=== PATIENT | female | born 2000 | race Caucasian/White ===

== ENCOUNTER 2020-03-19 16:15 | Outpatient (REF) | payer BC, SELFPAY | END 2020-03-19 16:16 | disposition home or self-care (01) | LOC: HO.LAB 16:15 | PROVIDERS: Visit Provider Internal Medicine | DX: Z20.828 Contact with and (suspected) exposure to other viral communicable diseases (principal) | CPT/HCPCS: C9803; U0003 ==

== ENCOUNTER 2021-01-10 06:49 | Emergency (ER) | payer OTHER, SELFPAY ==
--- NOTE | ~2021-01-10 | US_ITS ---
EXAMINATION: US ABDOMEN LIMITED CLINICAL INFORMATION: Epigastric pain. COMPARISON: None TECHNIQUE: Real-time imaging of the right upper quadrant abdominal viscera. FINDINGS: PANCREAS: Normal. LIVER: Normal. The liver is normal in size. The liver contour is normal. Parenchymal echogenicity is normal. No focal hepatic lesion. There is no intrahepatic biliary duct dilatation seen. GALLBLADDER: There is echogenic bile but no echogenic stones, wall thickening, polyps or pericholecystic fluid collection. COMMON BILE DUCT: Normal in caliber measuring 0.2 cm in diameter. RIGHT KIDNEY: There are diffuse echogenic pyramids suggestive of medullary sponge kidney. No hydronephrosis. No renal calculi or focal parenchymal lesions. The kidney measures 11.3 cm in maximum dimension. FREE FLUID: None. US/US abdomen limited IMPRESSION: Echogenic bile but no echogenic stones or wall thickening. Diffuse echogenic pyramids right kidney suggestive of medullary sponge kidney. CBD, liver and pancreas appear unremarkable.
[2021-01-10 06:54] VITALS: BP 135/80; PULSE 79; RESP 16; TEMP 36.6; O2SAT 99; BMI 35.6
--- NOTE | 2021-01-10 07:51 | ED_ITS ---
HPI - Nausea/Vomiting/Diarrhea General Chief complaint: Nausea/Vomiting/Diarrhea Stated complaint: vomiting non-stop, migraine Time Seen by Provider: 01/10/21 06:54 Source: patient and family Mode of arrival: ambulatory Limitations: no limitations History of Present Illness MD elicited complaint: nausea, vomiting and abdominal pain Pertinent past history: cyclical vomiting (?unsure has been going on since highschool) Onset (ago): day(s) (Sunday but this has been going on intermittent for years) Description of vomiting: food contents, watery and bilious Associated nausea: Yes Associated abdominal pain: Yes Location of pain: epigastric Radiation: diffuse Pain consistency: intermittent Severity: moderate Quality: cramping Exacerbating factors: eating Relieving factors: hot shower/bath Context: marijuana use Associated symptoms: loss of appetite, malaise and nausea/vomiting Treatment prior to arrival: other (tried zofran without relief) Related Data Previous Rx's Medication Instructions Recorded famotidine 20 mg tablet (Pepcid) 20 mg PO DAILY PRN #30 tab 01/10/21 metoclopramide HCl 10 mg tablet 10 mg PO Q6H PRN #30 tab 01/10/21 (Reglan) promethazine 25 mg rectal 25 mg UT Q6H PRN #12 ea 01/10/21 suppository Allergies Allergy/AdvReac Type Severity Reaction Status Date / Time No Known Allergies Allergy Verified 01/10/21 06:53 Review of Systems Review of Systems: Constitutional : No Weight loss, No Fever, No Chills ENT/Mouth : No sore throat, No Rhinorrhea Eyes: No Swelling, No Redness Cardiovascular : No Chest Pain, No SOB, NoEdema Respiratory : No Cough, No Sputum, No Wheezing Gastrointestinal : Positive Nausea, Positive Vomiting, no Diarrhea, positive abdominal Pain, No Hematochezia, No Melena Genitourinary : No Dysuria, No Urinary Frequency, No Hematuria, No Urgency Musculoskeletal : No joint pain, No Myalgias, No Joint Swelling Skin : No Skin Lesions, No rash Neuro : No Weakness, No Numbness, No Dizziness, No Headache Psych : No Anxiety/Panic, No Depression Heme/Lymph: No Bruising, No Lymphadenopathy Endocrine : No Polyuria, No Polydipsia All other systems reviewed and are negative. Gastrointestinal: Gastrointestinal: Reports nausea PMFSH Past Medical History Attestation statement: The following information was validated with the patient. Medical History (Updated 01/10/21 @ 12:26 by Francie Peres DO) Anxiety Depression Family hx of colon cancer No known health problems Social History Social History (Updated 01/10/21 @ 07:53 by Francie Peres DO) Patient Tobacco Use Status: Never used Tobacco Substance Use Type: Marijuana Advance Directives: No Physical Exam Vital Signs: Vital Signs: Last Vital Signs Temp 97.9 F 01/10/21 06:54 Pulse 79 01/10/21 06:54 Resp 16 01/10/21 06:54 BP 135/80 01/10/21 06:54 Pulse Ox 99 01/10/21 06:54 Body Mass Index 35.6 Appearance: Alert. Oriented X3. No acute distress. Eyes: Pupils equal, round and reactive to light. ENT: Pharynx normal. Neck: Normal inspection. Neck supple. CVS: Normal heart rate and rhythm. Pulses normal. Respiratory: No respiratory distress. Breath sounds normal. Abdomen: Soft and mild epigastric ttp neg Tyson's Skin: Skin warm and dry. Normal skin color. Normal skin turgor. Extremities: No lower extremity edema. No calf ttp Neuro: Oriented X 3. No motor deficit. No sensory deficit. Course Course Course Narrative: no acute findings at this time stable for DC MDM - Nausea/Vomiting/Diarrhea MDM Narrative Medical decision making narrative: 21 yo female with hx of longstanding vomiting episode has had neg endo and colonoscopy as a child reports daily THC use - aware this could be related to it given her propensity for hot showers at this time suspect THC induced cyclical vomiting will need labs, IVF, US to evaluate liver and GB, she does have upcoming GI workup this month with Dr. Newton. Lab Data Result diagrams: 01/10/21 07:56 01/10/21 07:56 Labs: Lab Results 01/10/21 01/10/21 01/10/21 Range/Units 07:47 07:56 07:56 WBC 8.5 (4.8-10.8) X10*3/uL RBC 4.49 (4.20-5.50) X10*6/uL Hgb 13.0 (12.0-16.0) g/dl Hct 38.1 (37-47) % MCV 84.9 (80-98) fL MCH 29.0 (27.0-33.0) pg MCHC 34.1 (31.0-35.0) g/dl RDW 12.5 (11.0-16.0) % Plt Count 211 (160-400) X10*3/uL MPV 11.0 (9.4-12.3) fL Immature Gran % (Auto) 0.5 H (0.0-0.4) % Neut % (Auto) 76.3 H (45-73) % Lymph % (Auto) 14.9 L (20-40) % [place] % (Auto) 7.7 (2-11) % Eos % (Auto) 0.4 (0-4) % Baso % (Auto) 0.2 (0-2) % Lymph # (Auto) 1.3 (1.2-4.9) X10*3/uL [place] # (Auto) 0.7 (0.1-1.2) X10*3/uL Eos # (Auto) 0.0 (0.0-0.4) X10*3/uL Baso # (Auto) 0.0 (0.0-0.2) X10*3/uL Abs Immat Gran (auto) 0.04 H (0.00-0.03) X10*3/uL Absolute Neuts (auto) 6.5 (2.0-8.3) X10*3/uL Absolute Nucleated RBC 0.000 (0.0-0.012) X10*3/uL Nucleated RBC % (auto) 0.0 (0.0-0.2) /100WBC Sodium 138 (135-145) mmol/L Potassium 3.4 (3.3-5.1) mmol/L Chloride 108 (96-108) mmol/L Carbon Dioxide 19 L (22-29) mmol/L Anion Gap 14 (12-20) BUN 10 (9-16) mg/dL Creatinine 0.77 (0.5-1.4) mg/dL Estim Creat Clear Calc 126.6 Estimated GFR > 60 Random Glucose 105 (60-115) mg/dL Calcium 9.1 (8.4-10.2) mg/dL Magnesium 1.9 (1.6-2.6) mg/dL Total Bilirubin 0.7 (0.0-1.0) mg/dL Direct Bilirubin 0.3 (0.0-0.5) mg/dL AST 10 (5-31) U/L ALT 10 (0-31) U/L Alkaline Phosphatase 66 (39-117) U/L Total Protein 6.9 (6.5-8.0) g/dL Albumin 4.3 (3.5-5.0) g/dL Lipase 12 (8-78) U/L COVID-19 (GRICELDA) Negative (Negative) COVID-19 Clin Com See Note Discharge Plan Discharge Clinical Impression: Vomiting Qualifiers: Vomiting type: unspecified Vomiting Intractability: non-intractable Nausea presence: with nausea Qualified Code(s): R11.2 - Nausea with vomiting, unspecified Patient Disposition: Home, Self-Care Instructions: Acute Nausea and Vomiting (ED) Additional Instructions: return to ED for any worsening symptoms or concerns stop smoking THC IMPRESSION: Echogenic bile but no echogenic stones or wall thickening. ? Diffuse echogenic pyramids right kidney suggestive of medullary sponge kidney. CBD, liver and pancreas appear unremarkable. incidental findings - bile is normal in GB, medullary sponge can lead to stones Prescriptions: New promethazine 25 mg suppository 25 mg UT Q6H PRN (Reason: nausea and vomiting) Qty: 12 RF: 0 famotidine [Pepcid] 20 mg tablet 20 mg PO DAILY PRN (Reason: abdominal discomfort) Qty: 30 RF: 0 metoclopramide HCl [Reglan] 10 mg tablet 10 mg PO Q6H PRN (Reason: nausea and vomiting) Qty: 30 RF: 0 Stand Alone Forms: Work/School Release
[2021-01-10] MEDS: Famotidine/PF 20 MG/2 ML VIAL IVPUSH (08:04)
[2021-01-10] MEDS: Metoclopramide HCl 10 MG/2 ML VIAL IVPUSH (08:09)
[2021-01-10] MEDS: diphenhydrAMINE HCL 50 MG/ML VIAL 25 MG IVPUSH (08:09)
[2021-01-10 08:10] LABS: COVID-19 Test Negative (Negative)
[2021-01-10] MEDS: 0.9 % Sodium Chloride 1,000 ML 999 ML IVCONT (08:25)
[2021-01-10 08:54] LABS: MANUAL DIFF FLAG NO
[2021-01-10 09:01] LABS: Basophils Percent Auto 0.2 % (0-2); Eosinophils Percent Auto 0.4 % (0-4); Hematocrit 38.1 % (37-47); Imm Gran Abs Auto 0.04 X10*3/uL (0.00-0.03); Imm Gran Pct Auto 0.5 % (0.0-0.4); Lymphocytes Absolute Auto 1.3 X10*3/uL (1.2-4.9); Lymphocytes Percent Auto 14.9 % (20-40); Mean Corpuscular HGB Conc 34.1 g/dl (31.0-35.0); Mean Corpuscular Volume 84.9 fL (80-98); Monocytes Absolute Auto 0.7 X10*3/uL (0.1-1.2); Monocytes Percent Auto 7.7 % (2-11); Neutrophils Absolute Auto 6.5 X10*3/uL (2.0-8.3); Neutrophils Percent Auto 76.3 % (45-73); Platelet Count 211 X10*3/uL (160-400); Red Blood Count 4.49 X10*6/uL (4.20-5.50); Red Cell Distribution Width 12.5 % (11.0-16.0); White Blood Count 8.5 X10*3/uL (4.8-10.8)
[2021-01-10 09:17] LABS: Alanine Aminotransferase 10 U/L (0-31); Albumin Level 4.3 g/dL (3.5-5.0); Alkaline Phosphatase 66 U/L (39-117); Anion Gap 14 (12-20); Aspartate Amino Transferase 10 U/L (5-31); Bilirubin Direct 0.3 mg/dL (0.0-0.5); Bilirubin Total 0.7 mg/dL (0.0-1.0); Blood Urea Nitrogen 10 mg/dL (9-16); Calcium 9.1 mg/dL (8.4-10.2); Carbon Dioxide 19 mmol/L (22-29); Chloride 108 mmol/L (96-108); Creatinine Clr Calc Pharmacy 126.6; Estimated Glomerular Filt Rate > 60; Glucose Random 105 mg/dL (60-115); Lipase 12 U/L (8-78); Magnesium 1.9 mg/dL (1.6-2.6); Potassium 3.4 mmol/L (3.3-5.1); Sodium 138 mmol/L (135-145); Total Protein 6.9 g/dL (6.5-8.0)
[2021-01-10 12:25] LABS: Appearance Urine HAZY; Color Urine YELLOW; Glucose Urine UA NEG (NEG); Leukocyte Esterase Urine NEG (NEG); Nitrite Urine NEG (NEG); PH 6.5 (5.0-8.0); Specific Gravity - Urine 1.015 (1.005-1.025); Urine Blood NEG (NEG); Urine Ketones 15 MG/DL (NEG); Urine Protein NEG (NEG-TRACE)
[2021-01-10 12:29] LABS: UPreg QC Valid YES; Urine Pregnancy NEGATIVE (NEGATIVE)
== END 2021-01-10 12:45 | disposition home or self-care (01) ==
PROVIDERS: Emergency Provider Emergency Medicine
DX: R11.2 Nausea with vomiting, unspecified (principal); R10.9 Unspecified abdominal pain; Z79.899 Other long term (current) drug therapy; Z20.822 Contact with and (suspected) exposure to COVID-19
CPT/HCPCS: 36415; 76705; 80048; 80076; 81003; 81025; 83690; 83735; 85025; 87635; 96361; 96374; 96375; 99284; J1200; J2765

== ENCOUNTER 2021-01-31 08:41 | Day surgery (SDC) | payer OTHER, SELFPAY ==
[2021-01-25 13:06] VITALS: BMI 36.6
--- NOTE | 2021-01-28 10:23 | HO.ANESPROP2 ---
Documented by User: Chio eRed NP 01/28/21 10:24 HPI - Anesthesia Eval Consult details Narrative: 21yo F for Upper Endoscopy and Colonoscopy PMFSH Past Medical History Medical History Anxiety Depression Family hx of colon cancer No known health problems Surgical History Surgical History History of esophagogastroduodenoscopy (EGD) Hx of colonoscopy Social History Social History (Updated 01/31/21 @ 09:22 by Amanda Mendoza MD) Patient Tobacco Use Status: Never used Tobacco Substance Use Type: Marijuana Last Used Substance: Hours (ago) Are you DNR?: No Advance Directives: No Advance Directives Information Provided: No Advance Directives on File: No Meds Allergies Allergy/AdvReac Type Severity Reaction Status Date / Time No Known Allergies Allergy Verified 01/25/21 13:03 Home Medications Medication Instructions Recorded Confirmed Last Taken Type sertraline 50 mg tablet 1.5 tab PO DAILY 01/25/21 01/25/21 Unknown History Exam Exam Date and Time: January 28, 2021 1023 Height,Weight and Vital Signs: Height 5 ft 4 in Weight 96.615 kg Pertinent Lab Results Pertinent Lab Results: Laboratory Tests 01/10/21 01/10/21 07:56 07:56 WBC 8.5 Hgb 13.0 Hct 38.1 Plt Count 211 Sodium 138 Potassium 3.4 Chloride 108 Carbon Dioxide 19 L BUN 10 Creatinine 0.77 Assessment and Plan Assessment Anesthesia Assessment: Chart Reviewed Documented by User: Amanda Mendoza MD 01/31/21 09:31 PMFSH Active Problems Active Problems: Abdominal pain, diarrhea Past Medical History Medical History Anxiety Depression Family hx of colon cancer No known health problems Family History Family history of problems with anesthesia: No Surgical History Surgical History History of esophagogastroduodenoscopy (EGD) Hx of colonoscopy History of Problems with Anesthesia: No Social History Social History (Updated 01/31/21 @ 09:22 by Amanda Mendoza MD) Patient Tobacco Use Status: Never used Tobacco Substance Use Type: Marijuana Last Used Substance: Hours (ago) Are you DNR?: No Advance Directives: No Advance Directives Information Provided: No Advance Directives on File: No Meds Allergies Allergy/AdvReac Type Severity Reaction Status Date / Time No Known Allergies Allergy Verified 01/25/21 13:03 Home Medications Medication Instructions Recorded Confirmed Last Taken Type sertraline 50 mg tablet 1.5 tab PO DAILY 01/25/21 01/25/21 Unknown History Exam Height,Weight and Vital Signs: Height 5 ft 4 in Weight 96.615 kg Vital Signs Temp Pulse Resp BP Pulse Ox 01/31/21 08:54 98.6 F 81 15 146/80 H 96 Pertinent Lab Results Pertinent Lab Results: Laboratory Tests 01/10/21 01/10/21 07:56 07:56 WBC 8.5 Hgb 13.0 Hct 38.1 Plt Count 211 Sodium 138 Potassium 3.4 Chloride 108 Carbon Dioxide 19 L BUN 10 Creatinine 0.77 Lab Results 01/31/21 Range/Units 08:50 Urine Test NEGATIVE (NEGATIVE) Airway Mallampati Class: I TM Dist: >3cm Neck ROM: Full Loose/Missing/Broken Teeth: No Heart: RRR Lungs: CTAB Assessment and Plan Assessment Anesthesia Assessment: Anesthesia Plan Discussed Final Anesthetic Review Family History of Problems with Anesthesia: No History of Problems with Anesthesia: No NPO: Yes ASA Class: II Final Preanesthetic Review: No Changes in Pt Med Stat, Meds/Allgs Chart Reviewed, Consent Obtained/Reviewed and Anes Risks/Benef Reviewed Patient Risk: Low Procedure Risk: Low Assessment/Block/Sedation in SS: Assess/Block/Sedation-SS Anesthetic Plan Anesthetic Plan: MAC: Disposition: Standard PACU
[2021-01-31 08:54] VITALS: BP 146/80; PULSE 81; RESP 15; TEMP 37; O2SAT 96; BMI 36.8
[2021-01-31 09:08] LABS: UPreg QC Valid YES; Urine Pregnancy NEGATIVE (NEGATIVE)
[2021-01-31 11:23] VITALS: BP 118/71; PULSE 89; RESP 16; TEMP 36.5; O2SAT 100
--- NOTE | 2021-01-31 11:28 | PM.OP ---
Brief Operative Note Date of Service: 01/31/21 Pre-op diagnosis: N/V, GERD, Diarrhea Post-op diagnosis: other (R/O EOE, Celiac disease, and Microscopic colitis) Procedure: EGD with biopsies, Colonoscopy to the cecum and TI with biopsies Surgeon: Iván Newton Anesthesia: MAC Was an Castings Drafter used for this Procedure?: No Estimated blood loss (mL): 3.0 Pathology: other (A. Descending duodenum B. Gastric antrum C. Esophagus at 25cm D. TI E. Ascending colon F. Descending colon) Condition: stable Disposition: PACU
[2021-01-31 11:38] VITALS: BP 120/75; PULSE 69; RESP 18; O2SAT 100
[2021-01-31 11:52] VITALS: BP 127/91; PULSE 64; TEMP 36.9; O2SAT 100
--- NOTE | 2021-01-31 12:07 | OP_ITS ---
SURGEON: Iván Newton MD INDICATIONS: The patient presents for evaluation of nausea, vomiting, diarrhea, and abnormal CT scan of colon. Full consent has been obtained from her for both procedures, including risks of bleeding and perforation. PREOPERATIVE DIAGNOSIS: POSTOPERATIVE DIAGNOSIS: PROCEDURE PERFORMED: Esophagogastroduodenoscopy with biopsies, and colonoscopy to cecum and terminal ileum with biopsies. ESTIMATED BLOOD LOSS: COMPLICATIONS: ANESTHESIA: Monitored anesthesia care. ASSISTANTS: SPECIMENS: PREOPERATIVE DIAGNOSES: Vomiting, diarrhea, abnormal CT scan of colon, as well as family history of colorectal cancer. POSTOPERATIVE DIAGNOSES: Vomiting, diarrhea, abnormal CT scan of colon, as well as family history of colorectal cancer, normal upper endoscopy, rule out eosinophilic esophagitis, rule out celiac disease, rule out microscopic colitis, internal hemorrhoids. DESCRIPTION OF PROCEDURE: The patient was placed in the left lateral decubitus position. The Olympus video gastroscope was passed in the posterior oropharynx and upper esophagus under direct vision. The scope was passed slowly into the distal esophagus. The gastroesophageal junction appeared normal at 35 cm. There was no sign of any esophagitis nor Horton's esophagus. There was no significant appreciable hiatal hernia. The scope was advanced to pylorus and duodenum was cannulated to the descending portion. The duodenum including the bulb appeared normal without mass or ulceration. Biopsies were obtained from the second and third portions of duodenum. The scope was withdrawn back into the stomach. The gastric antrum and body appeared normal with good peristalsis. Biopsies were obtained from the gastric antrum. The scope was retroflexed visualizing the proximal stomach carefully, which appeared normal, without any sign of mass or ulceration. Scope was straightened out and withdrawn back into the esophagus. The esophageal mucosa appeared completely normal. Biopsies were obtained at 25 cm. The scope was withdrawn from the patient. She was turned around for the colonoscopy. The digital rectal exam revealed no abnormalities. The Olympus video pediatric colonoscope was entered into the rectum and advanced easily to the cecum. Once in the cecum, I did identify normal-appearing cecal pouch with appendiceal orifice and a normal-appearing ileocecal valve. The terminal ileum was cannulated and appeared normal. The biopsies were obtained. The scope was withdrawn back in the colon. The entire cecum and ileocecal valve appeared normal. The scope was slowly withdrawn assessing all mucosal surfaces carefully. Preparation was excellent. I did not visualize any sign of polyps, colitis, nor angiodysplasia. I did obtain random biopsies in the ascending and descending colon. In the rectum, scope was retroflexed visualizing small internal hemorrhoids, but no other pathology. The rectal mucosa appeared normal. The scope was straightened out and withdrawn from the patient. She tolerated both procedures well and was returned to recovery area in stable condition. IMPRESSION: 1. Normal upper endoscopy, rule out eosinophilic esophagitis and celiac disease. 2. Normal colonoscopy other than internal hemorrhoids, rule out microscopic colitis. PLAN: The results of the biopsies will be checked. She was advised not to use any aspirin and NSAIDs for 1 week. She was advised to continue symptomatic treatment with Zofran, omeprazole or famotidine, and Imodium on a p.r.n. basis. She will be seen in followup in 2 to 3 months. She was advised to have a repeat colonoscopy at age 28 in regard to her father's history of colorectal cancer in his early 40s. MD MARY ANN [place]/INGRID / [id number]
== END 2021-01-31 12:25 | disposition home or self-care (01) ==
PROVIDERS: Nurse Practitioner; Visit Provider Internal Medicine
PROC: (CPT 45380; principal; 2021-01-31 09:50)
DX: R93.3 Abnormal findings on diagnostic imaging of other parts of digestive tract (principal); Z80.0 Family history of malignant neoplasm of digestive organs; R19.7 Diarrhea, unspecified; K64.8 Other hemorrhoids; R11.2 Nausea with vomiting, unspecified; R12 Heartburn; Z79.899 Other long term (current) drug therapy
CPT/HCPCS: 45380; 43239; 81025; 88305; 88342

== ENCOUNTER 2024-09-23 08:05 | Emergency (ER) | payer OTHER, SELFPAY ==
[2024-09-23 08:08] VITALS: BP 149/94; PULSE 64; RESP 18; TEMP 36.7; O2SAT 100; BMI 30.9
--- NOTE | 2024-09-23 08:09 | ED.NAVMDI ---
HPI - Nausea/Vomiting/Diarrhea General Chief complaint: Nausea/Vomiting/Diarrhea Stated complaint: Vomiting/ nauseous/ dizzy Time Seen by Provider: 09/23/24 08:16 History of Present Illness HPI Narrative: this is the RME note. Related Data Home Medications ?Medication ?Instructions ?Recorded ?Confirmed sertraline 50 mg tablet 1.5 tab PO DAILY 01/25/21 01/25/21 Previous Rx's ?Medication ?Instructions ?Recorded famotidine 20 mg tablet (Pepcid) 20 mg PO DAILY PRN abdominal 01/10/21 discomfort #30 tabs metoclopramide HCl 10 mg tablet 10 mg PO Q6H PRN nausea and 01/10/21 (Reglan) vomiting #30 tabs promethazine 25 mg rectal 25 mg MN Q6H PRN nausea and 01/10/21 suppository vomiting #12 ea dicyclomine 10 mg capsule 10 mg PO TID cramps #14 caps 09/23/24 Allergies Allergy/AdvReac Type Severity Reaction Status Date / Time shellfish derived [shellfish] Allergy Unknown Verified 09/23/24 08:08 [facility] Past Medical History Medical History Family hx of colon cancer Depression Anxiety No known health problems Surgical History History of esophagogastroduodenoscopy (EGD) Hx of colonoscopy Social History Social History Patient Tobacco Use Status: Never used Tobacco Substance Use Type: Marijuana Advance Directives: No Advance Directives Information Provided: No Physical Exam Vital Signs: Vital Signs: Last Vital Signs Temp 98.0 F 09/23/24 10:14 Pulse 82 09/23/24 10:14 Resp 16 09/23/24 10:14 BP 136/83 09/23/24 10:14 Pulse Ox 100 09/23/24 10:14 O2 Del Method Room Air 09/23/24 10:14 BMI result Body Mass Index 30.9 Course Course Course Narrative: 24 yo female with PMH of anxiety, cyclical vomiting x 10 years without a dx they do blame it on THC, she is no longer on sertraline due to having kids. She has been vomiting since Sunday with abdominal pain, no fevers, no diarrhea and no blood stools, no prior surgical procedures. She thinks this could also be stress related. Her dad was dx with colon cancer at age 40. She herself had a normal colonoscopy about 7 years ago. She notes her abdominal issues have occurred long before THC use and her mom corroborates that when she was a child she followed with peds GI. At this time labs, IVF, supportive medications ordered this is a RAPID medical screening exam the rest of the history and physical exam is to be done by the main provider. CONCHA 811am 09/23/24 Medications Administered Discontinued Medications Generic Name Dose Route Start Last Admin Trade Name Rashelq PRN Reason Stop Dose Admin Diphenhydramine HCl 25 mg 09/23/24 08:07 09/23/24 08:38 Diphenhydramine Hcl 50 Mg/Ml Vial IVPUSH 09/23/24 08:08 25 mg ONCE ONE Administration Lactated Ringer's 1,000 mls @ 999 mls/hr 09/23/24 08:07 09/23/24 08:38 Lr IV 09/23/24 09:07 999 mls/hr .Q1H1M ONE Administration Potassium Chloride 40 meq 09/23/24 09:27 09/23/24 09:58 Potassium Chloride Packet 20 Meq Packet PO 09/23/24 09:28 40 meq ONCE ONE Administration Prochlorperazine Edisylate 10 mg 09/23/24 08:07 09/23/24 08:38 Prochlorperazine Edisylate 10 Mg/2 Ml Vial IVPUSH 09/23/24 08:08 10 mg ONCE ONE Administration Medical Decision Making Lab Data 09/23/24 08:33 09/23/24 08:32 Labs: Lab Results 09/23/24 09/23/24 09/23/24 Range/Units 08:32 08:33 09:40 WBC 7.4 (4.8-10.8) X10*3/uL RBC 4.14 L (4.20-5.50) X10*6/uL Hgb 12.4 (12.0-16.0) g/dl Hct 35.0 L (37.0-47.0) % MCV 84.5 (80.0-98.0) fL MCH 30.0 (27.0-33.0) pg MCHC 35.4 H (31.0-35.0) g/dl RDW 12.1 (11.0-16.0) % Plt Count 180 (160-400) X10*3/uL MPV 11.2 (9.4-12.3) fL Immature Gran % (Auto) 0.3 (0.0-0.4) % Neut % (Auto) 76.8 H (45-73) % Lymph % (Auto) 15.1 L (20-40) % [place] % (Auto) 6.7 (2-11) % Eos % (Auto) 0.8 (0-4) % Baso % (Auto) 0.3 (0-2) % Lymph # (Auto) 1.1 L (1.2-4.9) X10*3/uL [place] # (Auto) 0.5 (0.1-1.2) X10*3/uL Eos # (Auto) 0.1 (0.0-0.4) X10*3/uL Baso # (Auto) 0.0 (0.0-0.2) X10*3/uL Abs Immat Gran (auto) 0.02 (0.00-0.03) X10*3/uL Absolute Neuts (auto) 5.7 (2.0-8.3) x10*3/uL Absolute Nucleated RBC 0.000 (0.0-0.012) X10*3/uL Nucleated RBC % (auto) 0.0 (0.0-0.2) /100WBC Sodium 139 (135-145) mmol/L Potassium 3.0 L (3.3-5.1) mmol/L Chloride 108 (96-108) mmol/L Carbon Dioxide 23 (22-29) mmol/L Anion Gap 11 L (12-20) BUN 7 L (9-16) mg/dL Creatinine 0.79 (0.5-1.4) mg/dL Estim Creat Clear Calc 111.4 Estimated GFR > 60 Random Glucose 103 (60-115) mg/dL Calcium 8.9 (8.4-10.2) mg/dL Magnesium 1.7 (1.6-2.6) mg/dL Total Bilirubin 0.8 (0.0-1.0) mg/dL Direct Bilirubin 0.3 (0.0-0.5) mg/dL AST 21 (5-31) U/L ALT 21 (0-31) U/L Alkaline Phosphatase 53 (39-117) U/L Total Protein 6.6 (6.5-8.0) g/dL Albumin 4.3 (3.5-5.0) g/dL Lipase 8 (8-78) U/L Urine Color Yellow Urine Appearance Clear Urine pH 8.0 (5.0-9.0) Ur Specific [place] 1.015 (1.005-1.025) Urine Protein Negative (Neg-Trace) mg/dL Urine Glucose (UA) Negative (Negative) mg/dL Urine Ketones 15 (Negative) mg/dL Urine Blood Negative (Negative) Urine Nitrite Negative (Negative) Ur Leukocyte Esterase Negative (Negative) Urine RBC 0-2 (0-2) /HPF Urine WBC 0-5 (0-5) /HPF Ur Squamous Epith Cells 0-2 (0-2) /HPF Urine Bacteria None Seen (None Seen) Hyaline Casts 0-2 (0-2) /LPF Urine Opiates Screen Not Detected (Not Detect) Ur Buprenorphine Scrn Not Detected (Not Detect) ng/mL Ur Oxycodone Screen Not Detected (Not Detect) ng/mL Urine Methadone Screen Not Detected (Not Detect) ng/mL Urine Fentanyl Screen Not Detected (Not Detect) Ur Barbiturates Screen Not Detected (Not Detect) Ur Phencyclidine Scrn Not Detected (Not Detect) Ur Amphetamines Screen Not Detected (Not Detect) U Benzodiazepines Scrn Not Detected (Not Detect) Urine Cocaine Screen Not Detected (Not Detect) U Marijuana (THC) Screen POSITIVE H (Not Detect) Discharge Plan Discharge Clinical Impression: Vomiting, Acute hypokalemia Patient Disposition: Home, Self-Care Instructions: Acute Nausea and Vomiting (DC) Additional Instructions: Follow-up with your primary care physician return to the emergency room if you worse stay on liquid diet for 24 hour Prescriptions: New dicyclomine 10 mg capsule 10 mg PO TID Qty: 14 0RF No Action sertraline 50 mg tablet 1.5 tab PO DAILY promethazine 25 mg suppository 25 mg MN Q6H PRN (Reason: nausea and vomiting) Qty: 12 0RF famotidine [Pepcid] 20 mg tablet 20 mg PO DAILY PRN (Reason: abdominal discomfort) Qty: 30 0RF metoclopramide HCl [Reglan] 10 mg tablet 10 mg PO Q6H PRN (Reason: nausea and vomiting) Qty: 30 0RF Referrals: Physician,Unknown J [Primary Care Provider] - 2 days Interventions: ED Discharge Assessment Last Done: 09/23/24 10:14 Discharge Date/Time: 09/23/24 10:16 Print Language: Bangladeshi
[2024-09-23 08:17] VITALS: BP 146/92; PULSE 58; RESP 16; O2SAT 100
--- NOTE | 2024-09-23 08:35 | ED.NAVMDI ---
HPI - Nausea/Vomiting/Diarrhea General Chief complaint: Nausea/Vomiting/Diarrhea Stated complaint: Vomiting/ nauseous/ dizzy Time Seen by Provider: 09/23/24 08:16 Source: patient Mode of arrival: ambulatory Limitations: no limitations History of Present Illness HPI Narrative: this is a 24 years old female presented to the emergency department with nausea and vomiting symptoms have been going on for about 3 or 4 days. MD elicited complaint: nausea and vomiting Pertinent past history: cyclical vomiting Onset (ago): day(s) (3-4days) Description of vomiting: watery Description of diarrhea: watery Associated nausea: Yes Quality: cramping Exacerbating factors: none Relieving factors: none Related Data Home Medications ?Medication ?Instructions ?Recorded ?Confirmed sertraline 50 mg tablet 1.5 tab PO DAILY 01/25/21 01/25/21 Previous Rx's ?Medication ?Instructions ?Recorded famotidine 20 mg tablet (Pepcid) 20 mg PO DAILY PRN abdominal 01/10/21 discomfort #30 tabs metoclopramide HCl 10 mg tablet 10 mg PO Q6H PRN nausea and 01/10/21 (Reglan) vomiting #30 tabs promethazine 25 mg rectal 25 mg WV Q6H PRN nausea and 01/10/21 suppository vomiting #12 ea dicyclomine 10 mg capsule 10 mg PO TID cramps #14 caps 09/23/24 Allergies Allergy/AdvReac Type Severity Reaction Status Date / Time shellfish derived [shellfish] Allergy Unknown Verified 09/23/24 08:08 Review of Systems ENT: Reports system reviewed and no additional complaints, except as documented Cardiovascular: Cardiovascular: Reports no additional cardiovascular complaints Gastrointestinal: Gastrointestinal: Reports nausea and Reports vomiting [facility] Past Medical History [facility] Narrative: History of cyclic vomiting Medical History Family hx of colon cancer Depression Anxiety No known health problems Surgical History History of esophagogastroduodenoscopy (EGD) Hx of colonoscopy Social History Social History Patient Tobacco Use Status: Never used Tobacco Substance Use Type: Marijuana Advance Directives: No Advance Directives Information Provided: No Physical Exam Vital Signs: Vital Signs: Last Vital Signs Temp 98.1 F 09/23/24 08:08 Pulse 58 09/23/24 08:17 Resp 16 09/23/24 08:17 BP 146/92 H 09/23/24 08:17 Pulse Ox 100 09/23/24 08:17 O2 Del Method Room Air 09/23/24 08:17 BMI result Body Mass Index 30.9 not acute distress comfortable in the stretcher Const: General: cooperative Nutritional Appearance: well nourished Orientation/consciousness: patient oriented x3 Limitations: no limitations HEENT: Head: Yes normal to inspection Face and sinus: Yes normal facial exam Neck: Neck: Yes normal visual inspection Chest: Chest palpation & inspection: normal inspection of the chest Resp: Effort & Inspection: normal respiratory effort Auscultation: clear to auscultation bilaterally Cardio: Jugular venous distension: no JVD Rate: regular rate Rhythm: regular rhythm GI: Inspection: Yes normal to inspection Palpation (GI): Soft to palpation, not firm and nontender Skin: General skin exam: no rashes or lesions noted Neuro: General: patient oriented x3 Extrem: General: Yes normal to inspection and Yes capillary refill normal Course Reevaluation(s) Reevaluation #1: feels much better Time: 09:27 Reevaluation #2: Asymptomatic doing very well anticipate discharge Time: 10:00 Medications Administered Discontinued Medications Generic Name Dose Route Start Last Admin Trade Name Freq PRN Reason Stop Dose Admin Diphenhydramine HCl 25 mg 09/23/24 08:07 09/23/24 08:38 Diphenhydramine Hcl 50 Mg/Ml Vial IVPUSH 09/23/24 08:08 25 mg ONCE ONE Administration Lactated Ringer's 1,000 mls @ 999 mls/hr 09/23/24 08:07 09/23/24 08:38 Lr IV 09/23/24 09:07 999 mls/hr .Q1H1M ONE Administration Potassium Chloride 40 meq 09/23/24 09:27 09/23/24 09:58 Potassium Chloride Packet 20 Meq Packet PO 09/23/24 09:28 40 meq ONCE ONE Administration Prochlorperazine Edisylate 10 mg 09/23/24 08:07 09/23/24 08:38 Prochlorperazine Edisylate 10 Mg/2 Ml Vial IVPUSH 09/23/24 08:08 10 mg ONCE ONE Administration Medical Decision Making Medical Decision Making [facility] Narrative: patient is here with nausea vomiting we will obtain blood work administer IV fluid antiemetic Differential Diagnosis Differential Diagnoses: The differential diagnosis associated with the presentation includes dehydration/renal failure / viral syndrome Admission/Observation Consideration of admission/observation: Escalation of care including admission/observation considered Lab Data [facility] Lab Attestation statement: I reviewed the patient's lab results. 09/23/24 08:33 09/23/24 08:32 Labs: Lab Results 09/23/24 09/23/24 09/23/24 Range/Units 08:32 08:33 09:40 WBC 7.4 (4.8-10.8) X10*3/uL RBC 4.14 L (4.20-5.50) X10*6/uL Hgb 12.4 (12.0-16.0) g/dl Hct 35.0 L (37.0-47.0) % MCV 84.5 (80.0-98.0) fL MCH 30.0 (27.0-33.0) pg MCHC 35.4 H (31.0-35.0) g/dl RDW 12.1 (11.0-16.0) % Plt Count 180 (160-400) X10*3/uL MPV 11.2 (9.4-12.3) fL Immature Gran % (Auto) 0.3 (0.0-0.4) % Neut % (Auto) 76.8 H (45-73) % Lymph % (Auto) 15.1 L (20-40) % [place] % (Auto) 6.7 (2-11) % Eos % (Auto) 0.8 (0-4) % Baso % (Auto) 0.3 (0-2) % Lymph # (Auto) 1.1 L (1.2-4.9) X10*3/uL [place] # (Auto) 0.5 (0.1-1.2) X10*3/uL Eos # (Auto) 0.1 (0.0-0.4) X10*3/uL Baso # (Auto) 0.0 (0.0-0.2) X10*3/uL Abs Immat Gran (auto) 0.02 (0.00-0.03) X10*3/uL Absolute Neuts (auto) 5.7 (2.0-8.3) x10*3/uL Absolute Nucleated RBC 0.000 (0.0-0.012) X10*3/uL Nucleated RBC % (auto) 0.0 (0.0-0.2) /100WBC Sodium 139 (135-145) mmol/L Potassium 3.0 L (3.3-5.1) mmol/L Chloride 108 (96-108) mmol/L Carbon Dioxide 23 (22-29) mmol/L Anion Gap 11 L (12-20) BUN 7 L (9-16) mg/dL Creatinine 0.79 (0.5-1.4) mg/dL Estim Creat Clear Calc 111.4 Estimated GFR > 60 Random Glucose 103 (60-115) mg/dL Calcium 8.9 (8.4-10.2) mg/dL Magnesium 1.7 (1.6-2.6) mg/dL Total Bilirubin 0.8 (0.0-1.0) mg/dL Direct Bilirubin 0.3 (0.0-0.5) mg/dL AST 21 (5-31) U/L ALT 21 (0-31) U/L Alkaline Phosphatase 53 (39-117) U/L Total Protein 6.6 (6.5-8.0) g/dL Albumin 4.3 (3.5-5.0) g/dL Lipase 8 (8-78) U/L Urine Color Yellow Urine Appearance Clear Urine pH 8.0 (5.0-9.0) Ur Specific [place] 1.015 (1.005-1.025) Urine Protein Negative (Neg-Trace) mg/dL Urine Glucose (UA) Negative (Negative) mg/dL Urine Ketones 15 (Negative) mg/dL Urine Blood Negative (Negative) Urine Nitrite Negative (Negative) Ur Leukocyte Esterase Negative (Negative) Independent Historian Clinical information obtained from an independent historian. History obtained from or confirmed by: Other (mother) Tests considered The following testing was considered but not selected: ct abdomen but felt much better Discharge Plan Discharge Clinical Impression: Acute hypokalemia Vomiting Qualifiers: Vomiting type: unspecified Nausea presence: unspecified Qualified Code(s): R11.10 - Vomiting, unspecified Patient Disposition: Home, Self-Care Instructions: Acute Nausea and Vomiting (DC) Additional Instructions: Follow-up with your primary care physician return to the emergency room if you worse stay on liquid diet for 24 hour Prescriptions: New dicyclomine 10 mg capsule 10 mg PO TID Qty: 14 0RF No Action sertraline 50 mg tablet 1.5 tab PO DAILY promethazine 25 mg suppository 25 mg WV Q6H PRN (Reason: nausea and vomiting) Qty: 12 0RF famotidine [Pepcid] 20 mg tablet 20 mg PO DAILY PRN (Reason: abdominal discomfort) Qty: 30 0RF metoclopramide HCl [Reglan] 10 mg tablet 10 mg PO Q6H PRN (Reason: nausea and vomiting) Qty: 30 0RF Referrals: Physician,Unknown J [Primary Care Provider] - 2 days Print Language: Icelandic
[2024-09-23] MEDS: diphenhydrAMINE HCL 50 MG/ML VIAL 25 MG IVPUSH (08:38)
[2024-09-23] MEDS: Lactated Ringers 1,000 ML 999 ML IV (08:38)
[2024-09-23] MEDS: Prochlorperazine Edisylate 10 MG/2 ML VIAL IVPUSH (08:38)
[2024-09-23 08:39] LABS: MANUAL DIFF FLAG NO
[2024-09-23 08:40] LABS: Basophils Percent Auto 0.3 % (0-2); Eosinophils Absolute Auto 0.1 X10*3/uL (0.0-0.4); Eosinophils Percent Auto 0.8 % (0-4); Hemoglobin 12.4 g/dl (12.0-16.0); Imm Gran Abs Auto 0.02 X10*3/uL (0.00-0.03); Imm Gran Pct Auto 0.3 % (0.0-0.4); Lymphocytes Absolute Auto 1.1 X10*3/uL (1.2-4.9); Lymphocytes Percent Auto 15.1 % (20-40); Mean Corpuscular HGB Conc 35.4 g/dl (31.0-35.0); Mean Corpuscular Volume 84.5 fL (80.0-98.0); Mean Platelet Volume 11.2 fL (9.4-12.3); Monocytes Absolute Auto 0.5 X10*3/uL (0.1-1.2); Monocytes Percent Auto 6.7 % (2-11); Neutrophils Absolute Auto 5.7 x10*3/uL (2.0-8.3); Neutrophils Percent Auto 76.8 % (45-73); Platelet Count 180 X10*3/uL (160-400); Red Blood Count 4.14 X10*6/uL (4.20-5.50); Red Cell Distribution Width 12.1 % (11.0-16.0); White Blood Count 7.4 X10*3/uL (4.8-10.8)
--- NOTE | 2024-09-23 08:44 | PC.NURSE ---
Patient is a 24 yo female who presents with cyclical vomiting for since Sunday. Was seen at [facility] on Sunday, Sunday and Sunday and discharged. Patient admits to daily marijuana use. Lungs clear bilat. Respirations even and non-labored. Abdomen soft with hypoactive bowel sounds. c/o mid abdominal pain. Positive pedal pulses with no edema. Mom at the bedside. Medical History Family hx of colon cancer Depression Anxiety cyclical vomiting syndrome daily marijuana use Surgical History History of esophagogastroduodenoscopy (EGD) Hx of colonoscopy
--- OUTSIDE RECORDS SUMMARY | 2024-09-23 08:47 | XMS_ITS | Clinical Summary ---
Author Organization [facility] Address [address] [place] [address] Phone Care Team Providers Care Clinical Nursing Assistant Name Role Phone Unavailable Primary Care Provider Unavailabl e Allergies No known active allergies Medications sertraline 50 MG tablet 02/29/20 18 Active ondansetron ODT (ondansetron ODT) 4 MG disintegrating tabletIndications: Dizziness Take 1 tablet (4 mg total) by mouth every 8 (eight) hours as needed for nausea or vomiting for up to 15 doses. 15 tablet 03/12/20 18 Active Additional Information Patient not taking.Reported on 03/14/2018 norelgestromin-eth inyl estradiol (XULANE) 150-35 MCG/24HRIndication s:Amenorrhea Apply 1 patch each week for 3 weeks, then remove for 1 week. 3 patch 12 03/12/20 18 Active Additional Information Patient not taking.Reported on 04/18/2018 ILIANA 0.35 MG tablet 04/17/19 19 Active Active Problems Problem Noted Date Diagnosed Date Mild intermittent asthma without complication Overview (03/12/2018): Exercise induced bronchospasm 01/13. RAD , Other irritable bowel syndrome 03/12/2018 Overview (03/12/2018): Father of colo-rectal cancer. GI 08/2013, dx irritable bowel, reassuring colonoscopy/endoscopy Anxiety disorder 01/25/2017 Overview (03/12/2018): History of self-harm Resolved Problems Problem Noted Date Diagnosed Date Resolved Date 01/28/2017 03/12/2018 Overview (03/12/2018): Baby Matheus born 2/18 Immunizations Immunization Administration Dates Next Due DTaP 01/28/2003, 0,1998,05/10,1998 HPV, Quadrivalent 11/10/2010,02/03/2010,12/08/19 10 Hep B, ped/adol 1998,1998,1998 Hib (PRP-T) 04/13/1999, 9,1998,03/10 IPV 01/28/2003, 9,1998,03/10 Influenza 02/15/2007 Influenza, injectable, quadrivalent 03/20/2014,0 12/07/2009 Influenza, injectable, quadr ivalent, preservative free 03/14/2018,01/25/2017,01/28/2008 MMR 03/12/2002,02/08/1999 Meningococcal Conj (Menactra) MCV4P 05/22/2014,0 12/07/2009 Tdap 12/07/2009 Varicella 02/25/2008,02/08/1999 Family History Medical History Relation Name Comments Depression Brother Depression Maternal Grandfather Relation Name Status Comments Brother Father rectal cancer 2 008 diagnosed 01/13 Father's Brother cancer cent ral nervous system glioma Maternal Grandfather depress ion, suicide Maternal Grandmother Alive arthrit is, memory loss....stroke Mother Alive hearing loss Paternal Grandfather GI blee d Paternal Grandmother ovarian cancer Social History Tobacco Use Types Packs/Day Years Used Date Smoking Tobacco: Never Smokeless Tobacco: Never Alcohol Use Standard Drinks/Week Comments Yes 0 (1 standard drink = 0.6 oz pur e alcohol) Comments Unknown Sex and Gender Information Value Date Recorded Sex Assigned at Not on file Legal Sex Female 6:08 PM EDT Gender Identity Not on file Sexual Orientation Not on file Last Filed Vital Signs Vital Sign Reading Time Taken Comments Blood Pressure 102/64 04/18/2018 12:54 PM EST Pulse 82 09/15/2009 12:00 AM EDT Temperature 37.1 ??C (98.7 ??F) 04/18/2018 12:[address] Respiratory Rate - - Oxygen Saturation 98% 09/15/2009 12:00 AM EDT Inhaled Oxygen Concentration - - Weight 90.9 kg (200 lb 6 oz) 04/18/2018 12:54 PM EST Height 163.8 cm (5' 4.5 ) 04/18/2018 12:54 PM ES T Body Mass Index 33.86 04/18/2018 12:54 PM EST Plan of Treatment Health Maintenance Due Date Last Done Comments DTaP,Tdap,and Td Vaccines (7 - Td or Tdap) 12/08/2019 12/07/2009, 01/28/2003, 04/13/1999, Additional history exists Influenza Vaccines (#1) 2023 03/14/20 18, 01/25/2017, 03/20/2014, Additional history exists COVID-19 Vaccine ( season) 2023 Hepatitis B Vaccines Completed 1998, 1998, 1998 HIB Vaccines Completed 04/13/1999, 09/1998, 1998, Additional history exists MMR Vaccines Completed 03/12/2002, 02/08/1999 IPV Vaccines Completed 01/28/2003, 05/1998, 1998, Additional history exists Varicella Vaccines Completed 02/25/2008, 02/08/1999 HPV Vaccines Completed 11/10/2010, 01/08, 12/07/2009 Meningococcal Vaccine Completed 05/22/2014, 010 Hepatitis A Vaccines Aged Out No long er eligible based on patient's age to complete this topic Men B Vaccine Aged Out No longer elig ible based on patient's age to complete this topic Pneumococcal Vaccine Aged Out No long er eligible based on patient's age to complete this topic Procedures * Due to [place] [employer] law, this organization might not be sharing sensitive test results. Procedure Name Priority Date/Time Associated Diagnosis Comments CHLAMYDIA AND GONORRHEA, AMPLIFIED Routine 03/14/2018 1:07 PM EST Encounter for screening examination for sexually transmitted disease from Last 3 Months or Most Recently Relevant to Health Maintenance Results * Due to [place] [employer] law, this organization might not be sharing sensitive test results. * Chlamydia and Gonorrhoea, Amplified (03/14/2018 1:07 PM EST) Chlamydia Trachomatis, DNA Probe NEGATIVE (NEG) [facility] Comment: No Chlamydia Trachomatis RNA detected in this patient's sample ? (REFERENCE RANGE/NORMAL VALUE: NOT DETECTED) ? Note: This test uses insurance defense paralegal- mediated amplification method to detect rRNA from C. Trachomatis URINE GC AMP PROBE NEGATIVE (NEG) [facility] Comment: No Neisseria Gonorrhoeae RNA detected in this patient's sample ? (REFERENCE RANGE/NORMAL VALUE: NOT DETECTED) ? NOTE: This test uses insurance defense paralegal-mediated amplification method to detect rRNA from N.Gonorrhoeae. A negative result does not preclude infection. In the case of a negative urine result, testing of an endocervical(female) or urethral (male) specimen is recommended if there is high clinical suspicion of infection. Due to very high sensitivity of Nucleic Acid Amplification Test, false positive results may occur. Therefore, specimen handling is extremely important. In patients in whom the disease is unlikely, additional sample for testing should be considered after an initial positive result. The performance characteristics of this test have not been evaluated in children. The Aptima Combo2 assay is not intended for the evaluation of suspected sexual abuse or for other medico-legal indications. The ordering provider should assess if the patient had consensual sex without risk of sexual abuse. Consult the [facility] if needed. Contact phone number . Therapeutic failure or success cannot be determined with the Aptima Combo2 assay since nucleic acid may persist following appropriate antimicrobial therapy. The Centers for Disease Control and Prevention (CDC) recommends confirmatory retesting using culture or a different nucleic acid amplification test when positive results occur, if indicated. Testing performed or reported by [facility], a Service of [facility], [address] [place] [address] [place] [address] [place] [id number] Constance Arevalo MD, Water [employer]er Urine (Urine) 03/14/2018 1:0 7 PM EST 03/14/2018 11:43 PM EST us Divya Smith MD LAB MICROBIOLOGY - GENERAL ORDER TOMASZ Final Result [facility] from Last 3 Months or Most Recently Relevant [place] [phone] [facility]
[2024-09-23 09:02] LABS: Alanine Aminotransferase 21 U/L (0-31); Albumin Level 4.3 g/dL (3.5-5.0); Alkaline Phosphatase 53 U/L (39-117); Anion Gap 11 (12-20); Aspartate Amino Transferase 21 U/L (5-31); Bilirubin Direct 0.3 mg/dL (0.0-0.5); Bilirubin Total 0.8 mg/dL (0.0-1.0); Blood Urea Nitrogen 7 mg/dL (9-16); Calcium 8.9 mg/dL (8.4-10.2); Carbon Dioxide 23 mmol/L (22-29); Chloride 108 mmol/L (96-108); Creatinine Clr Calc Pharmacy 111.4; Estimated Glomerular Filt Rate > 60; Glucose Random 103 mg/dL (60-115); Lipase 8 U/L (8-78); Magnesium 1.7 mg/dL (1.6-2.6); Sodium 139 mmol/L (135-145); Total Protein 6.6 g/dL (6.5-8.0)
[2024-09-23 09:55] LABS: Appearance Urine Clear; Color Urine Yellow; Glucose Urine UA Negative (Negative); Leukocyte Esterase Urine Negative (Negative); Nitrite Urine Negative (Negative); Specific Gravity - Urine 1.015 (1.005-1.025); Urine Blood Negative (Negative); Urine Ketones 15 mg/dL (Negative); Urine Protein Negative (Neg-Trace)
[2024-09-23] MEDS: Potassium Chloride Packet 20 MEQ PACKET 40 MEQ PO (09:58)
[2024-09-23 10:00] VITALS: BP 136/83; PULSE 82; RESP 16; O2SAT 100
[2024-09-23 10:00] LABS: Bacteria Urine None Seen (None Seen); Hyaline Casts Urine 0-2 /LPF (0-2); RBC Urine 0-2 /HPF (0-2); Squamous Epithelial Cell Urine 0-2 /HPF (0-2); WBC Urine 0-5 /HPF (0-5)
[2024-09-23 10:09] LABS: Amphetamine Screen Urine Not Detected (Not Detect); Barbiturates, Urine Not Detected (Not Detect); Benzodiazepines Screen Urine Not Detected (Not Detect); Buprenorphine Scr Not Detected (Not Detect); Cannabinoid Screen Urine POSITIVE (Not Detect); Cocaine Screen Urine Not Detected (Not Detect); Fentanyl, urine Not Detected (Not Detect); Methadone Screen, Urine Not Detected (Not Detect); Opiate Screen Urine Not Detected (Not Detect); Oxycodone Screen Urine Not Detected (Not Detect); Phencyclidine Screen Urine Not Detected (Not Detect)
[2024-09-23 10:14] VITALS: BP 136/83; PULSE 82; RESP 16; TEMP 36.7; O2SAT 100
== END 2024-09-23 10:16 | disposition home or self-care (01) ==
PROVIDERS: Emergency Medicine; Emergency Provider Emergency Medicine
DX: E87.6 Hypokalemia (principal); R11.2 Nausea with vomiting, unspecified; Z79.899 Other long term (current) drug therapy
CPT/HCPCS: 36415; 80053; 80076; 80307; 81001; 82248; 83690; 83735; 85025; 96374; 96375; 99284; J0737; J1200; J7120